=== PATIENT | male | born 1965 | race Caucasian/White ===

== ENCOUNTER 2016-07-12 | Inpatient (IN) | payer MEDICARE ==
[~2016-07-12] MED LIST: ADULT ASPIRIN81 MG PO; AMBIEN10 MG PO; AUGMENTIN875 MG PO; CELEXA20 MG PO; COREG12.5 M1 PO; FISH OIL 1,2001 EAC4 PO; FLEXERIL10 MG PO; METHADONE10 MG/TAB PO; NEURONTIN300 MG PO; NORCO 10/3251 TA1 PO; PHENERGAN25 M1 PO; PROTONIX40 M2 PO; SENOKOT-S TABLE1 TAB PO; ZESTRIL10 MG PO; ZOCOR20 MG PO
[2016-07-12] MEDS ORDERED: VENLAFAXINE HCL75 M3 PO (20:08)
[2016-07-12] MEDS ORDERED: NORVASC10 M2 PO (20:09)
[2016-07-12] MEDS ORDERED: COUMADIN5 M2 PO (20:10)
[2016-07-12] MEDS ORDERED: COUMADIN7.5 M1 PO (20:10)
[2016-07-14] MEDS ORDERED: COUMADIN5 M2 PO (11:06)
[2016-07-14] MEDS ORDERED: COREG25 M1 PO (11:07)
[2016-09-16] MEDS ORDERED: PRINIVIL5 M1 PO (19:13)
[2016-09-16] MEDS ORDERED: PROTONIX40 M2 PO (19:15)
[2016-09-16] MEDS ORDERED: NORCO 5-325 TA1 EACH PO (21:59)
== END 2016-07-14 12:07 | DRG 291 ==
DX: I13.0 Hypertensive heart and chronic kidney disease with heart failure and stage 1 through stage 4 chronic kidney disease, or unspecified chronic kidney disease (principal); I50.41 Acute combined systolic (congestive) and diastolic (congestive) heart failure; J96.01 Acute respiratory failure with hypoxia; N17.9 Acute kidney failure, unspecified; J81.1 Chronic pulmonary edema; N18.3 Chronic kidney disease, stage 3 (moderate); I49.5 Sick sinus syndrome; I25.10 Atherosclerotic heart disease of native coronary artery without angina pectoris; I48.2 Chronic atrial fibrillation; Z96.653 Presence of artificial knee joint, bilateral; R73.9 Hyperglycemia, unspecified; D72.829 Elevated white blood cell count, unspecified; I25.5 Ischemic cardiomyopathy; G47.33 Obstructive sleep apnea (adult) (pediatric); Z95.0 Presence of cardiac pacemaker; Z95.1 Presence of aortocoronary bypass graft; Z91.19 Patient's noncompliance with other medical treatment and regimen; Z79.01 Long term (current) use of anticoagulants; Z23 Encounter for immunization

== ENCOUNTER 2016-08-13 14:51 | Inpatient (IN) | payer MEDICARE ==
[~2016-08-13 14:51] MED LIST changes: +COREG25 M1 PO; +COUMADIN5 M2 PO; +COUMADIN7.5 M1 PO; +NORVASC10 M2 PO; +VENLAFAXINE HCL75 M3 PO
[2016-08-13] MEDS ORDERED: LASIX40 M1 PO (15:04)
[2016-08-13 15:22] LABS: BASO % 0.4 % (0-2); EOS % 2.1 % (0-7); EOSINOPHIL ABSOLUTE COUNT 0.2 tho/cmm (0.0-0.7); HCT-HEMATOCRIT 38.8 % (36.0-53.5); HGB-HEMOGLOBIN 12.9 gm/dl (13.5-17.0); IMMATURE GRANULOCYTES ABSOLUTE 0.02 tho/cmm (0-0.03); IMMATURE GRANULOCYTES PERCENT 0.2 % (0-0.3); LYMPH ABSOLUTE COUNT 1.5 tho/cmm (0.8-4.5); MCH (MEAN CORPUSCULAR HGB) 28.4 pg (28.0-32.0); MCHC MEAN CORPUSCULAR HGB CONC 33.2 % (32.0-36.0); MCV (MEAN CELL VOLUME) 85.3 fl (82.0-96.0); MEAN PLATELET VOLUME 11.6 cmc (9.4-12.4); MONO % 6.8 % (0-12); MONOCYTE ABSOLUTE COUNT 0.6 tho/cmm (0.0-1.2); NEUTROPHILS % 72.5 % (40-80); PLATELET COUNT 191 tho/cmm (150-450); RED BLOOD COUNT 4.55 mil/cmm (4.40-5.70); RED CELL DISTRIBUTION WIDTH 14.2 % (12.4-16.4); WHITE BLOOD COUNT 8.2 tho/cmm (4.0-10.0)
[2016-08-13 15:23] LABS: INR 1.2 INR (0.9-1.1); PROTHROMBIN TIME 14.6 SECONDS (9.0-13.6)
[2016-08-13 15:50] LABS: ALB/GLOB RATIO 0.9 (0.8-2.0); ALKALINE PHOSPHATASE 94 U/L (33-138); ALT/SGPT 27 U/L (12-78); ANION GAP 13 mmol/L (0-20); AST/SGOT 19 U/L (10-40); BILIRUBIN,TOTAL 0.7 mg/dl (0.0-1.5); BLOOD UREA NITROGEN 29 mg/dl (6-24); CARBON DIOXIDE-VENOUS 22 mmol/L (22-32); CHLORIDE 114 mmol/l (96-110); CKMB 1.6 ng/ml (<3.6); CREATININE 1.83 mg/dl (0.60-1.30); GLUCOSE 118 mg/dL (70-110); POTASSIUM 4.2 mmol/L (3.7-5.1); SODIUM 145 mmol/L (135-145); eGFR VALUE FOR BLACK 48 mL/Min
[2016-08-13 20:00] LABS: MAGNESIUM 1.7 mg/dl (1.8-2.6)
[2016-08-14 01:36] LABS: INR 1.3 INR (0.9-1.1); PROTHROMBIN TIME 14.7 SECONDS (9.0-13.6)
[2016-08-14 01:45] LABS: ANION GAP 14 mmol/L (0-20); BLOOD UREA NITROGEN 29 mg/dl (6-24); CALCIUM 7.9 mg/dl (8.5-10.5); CARBON DIOXIDE-VENOUS 22 mmol/L (22-32); CHLORIDE 114 mmol/l (96-110); CHOLESTEROL 109 mg/dl (120-200); CREATININE 1.72 mg/dl (0.60-1.30); GLUCOSE 90 mg/dL (70-110); HDL CHOLESTEROL 39 mg/dl (40-60); LDL CHOLESTEROL 52 mg/dl (0-99); SODIUM 146 mmol/L (135-145); TRIGLYCERIDES 91 mg/dl (<149); VLDL 18 mg/dl (0-30); eGFR VALUE FOR BLACK 52 mL/Min
[2016-08-15 05:56] LABS: INR 1.3 INR (0.9-1.1); PROTHROMBIN TIME 15.8 SECONDS (9.0-13.6)
[2016-08-15 05:58] LABS: BASO % 0.5 % (0-2); BASO ABSOLUTE COUNT 0.1 tho/cmm (0.0-0.2); EOS % 1.8 % (0-7); EOSINOPHIL ABSOLUTE COUNT 0.2 tho/cmm (0.0-0.7); HCT-HEMATOCRIT 39.2 % (36.0-53.5); IMMATURE GRANULOCYTES ABSOLUTE 0.02 tho/cmm (0-0.03); IMMATURE GRANULOCYTES PERCENT 0.2 % (0-0.3); LYMPH % 20.1 % (20-45); LYMPH ABSOLUTE COUNT 2.2 tho/cmm (0.8-4.5); MCH (MEAN CORPUSCULAR HGB) 27.8 pg (28.0-32.0); MCHC MEAN CORPUSCULAR HGB CONC 33.2 % (32.0-36.0); MCV (MEAN CELL VOLUME) 83.9 fl (82.0-96.0); MEAN PLATELET VOLUME 11.5 cmc (9.4-12.4); MONO % 6.3 % (0-12); MONOCYTE ABSOLUTE COUNT 0.7 tho/cmm (0.0-1.2); NEUTROPHIL ABSOLUTE COUNT 7.8 tho/cmm (1.6-8.0); NEUTROPHIL-AUTOMATED 7.8 tho/cmm (1.6-8.0); NEUTROPHILS % 71.1 % (40-80); PLATELET COUNT 196 tho/cmm (150-450); RED BLOOD COUNT 4.67 mil/cmm (4.40-5.70); RED CELL DISTRIBUTION WIDTH 14.2 % (12.4-16.4)
[2016-08-15 06:07] LABS: ALBUMIN 3.2 g/dl (3.5-5.0); ANION GAP 15 mmol/L (0-20); BLOOD UREA NITROGEN 30 mg/dl (6-24); CALCIUM 8.2 mg/dl (8.5-10.5); CARBON DIOXIDE-VENOUS 23 mmol/L (22-32); CHLORIDE 109 mmol/l (96-110); CREATININE 1.79 mg/dl (0.60-1.30); GLUCOSE 101 mg/dL (70-110); MAGNESIUM 2.3 mg/dl (1.8-2.6); PHOSPHOROUS 3.6 mg/dl (2.5-4.9); POTASSIUM 3.9 mmol/L (3.7-5.1); SODIUM 143 mmol/L (135-145); eGFR VALUE FOR BLACK 49 mL/Min
[2016-08-15 06:10] LABS: URINE TOTAL PROTEIN-RANDOM 6.8 mg/dl (<11.8)
[2016-08-15 09:27] LABS: URINE PRT/CR RATIO 0.23 Ratio (0.0-0.20)
[2016-08-16 06:04] LABS: INR 1.3 INR (0.9-1.1); PROTHROMBIN TIME 15.3 SECONDS (9.0-13.6)
[2016-08-16 06:11] LABS: ANION GAP 13 mmol/L (0-20); BLOOD UREA NITROGEN 26 mg/dl (6-24); CARBON DIOXIDE-VENOUS 23 mmol/L (22-32); CHLORIDE 108 mmol/l (96-110); CREATININE 1.68 mg/dl (0.60-1.30); GLUCOSE 102 mg/dL (70-110); POTASSIUM 3.8 mmol/L (3.7-5.1); SODIUM 140 mmol/L (135-145); eGFR VALUE FOR BLACK 53 mL/Min
[2016-08-16] MEDS ORDERED: PLAVIX75 M1 PO (09:46)
[2016-08-16] MEDS ORDERED: RANEXA500 M1 PO (09:46)
[2016-08-16] MEDS ORDERED: LIPITOR40 M1 PO (09:47)
[2016-08-16] MEDS ORDERED: NITROSTAT0.4 M1 SL (09:48)
[2016-08-16] MEDS ORDERED: NORVASC2.5 M1 PO (09:50)
[2016-08-16] MEDS ORDERED: ASPIRIN81 M1 PO (09:51)
[2016-08-16] MEDS ORDERED: COLACE100 M1 PO (09:54)
[2016-08-16] MEDS ORDERED: ALLOPURINOL300 M1 PO (09:55)
[2016-08-16] MEDS ORDERED: FEOSOL325 M1 PO (09:55)
[2016-08-16] MEDS ORDERED: POTASSIUM CHLO10 ME2 PO (09:56)
[2016-09-16] MEDS ORDERED: PRINIVIL5 M1 PO (19:13)
[2016-09-16] MEDS ORDERED: PROTONIX40 M2 PO (19:15)
[2016-09-16] MEDS ORDERED: NORCO 5-325 TA1 EACH PO (21:59)
== END 2016-08-16 13:28 | DRG 247 ==
LOC: EDMED 14:51 → EMR2 16:53 → PCUA 23:05
PROVIDERS: Emergency Medicine; Internal Medicine; Internal Medicine Interventional Cardiology; Internal Medicine Nephrology; ADMIT Hospitalist
PROC: 5A09357 Assistance with Respiratory Ventilation, Less than 24 Consecutive Hours, Continuous Positive Airway Pressure (ICD-10-PCS; 2016-08-13)
PROC: 027034Z Dilation of Coronary Artery, One Artery with Drug-eluting Intraluminal Device, Percutaneous Approach (ICD-10-PCS; principal; 2016-08-15)
PROC: 4A023N7 Measurement of Cardiac Sampling and Pressure, Left Heart, Percutaneous Approach (ICD-10-PCS; 2016-08-15)
PROC: B2111ZZ Fluoroscopy of Multiple Coronary Arteries using Low Osmolar Contrast (ICD-10-PCS; 2016-08-15)
PROC: B2181ZZ Fluoroscopy of Left Internal Mammary Bypass Graft using Low Osmolar Contrast (ICD-10-PCS; 2016-08-15)
PROC: B41C1ZZ Fluoroscopy of Pelvic Arteries using Low Osmolar Contrast (ICD-10-PCS; 2016-08-15)
DX: I13.0 Hypertensive heart and chronic kidney disease with heart failure and stage 1 through stage 4 chronic kidney disease, or unspecified chronic kidney disease (principal); N17.9 Acute kidney failure, unspecified; E87.0 Hyperosmolality and hypernatremia; N18.3 Chronic kidney disease, stage 3 (moderate); I50.42 Chronic combined systolic (congestive) and diastolic (congestive) heart failure; I25.110 Atherosclerotic heart disease of native coronary artery with unstable angina pectoris; R07.9 Chest pain, unspecified; E78.5 Hyperlipidemia, unspecified; D64.9 Anemia, unspecified; I25.5 Ischemic cardiomyopathy; I48.2 Chronic atrial fibrillation; G47.33 Obstructive sleep apnea (adult) (pediatric); Z95.810 Presence of automatic (implantable) cardiac defibrillator; Z95.1 Presence of aortocoronary bypass graft; Z91.09 Other allergy status, other than to drugs and biological substances; Z79.01 Long term (current) use of anticoagulants; M47.9 Spondylosis, unspecified; E66.9 Obesity, unspecified; Z98.1 Arthrodesis status; D72.829 Elevated white blood cell count, unspecified; M10.9 Gout, unspecified; Z68.35 Body mass index [BMI] 35.0-35.9, adult
CPT/HCPCS: C1760; C1769; C1874; C1887; C8924; G8978-GP-CI; G8979-GP-CI; G8980-GP-CI; J1644; J1940; J2250; J3010; J3475; J7030; Q9967